=== PATIENT | male | born 1950 | race Two or more races ===

== ENCOUNTER → 2020-06-05 | Outpatient (CLI) | payer MEDICARE ==
[2020-06-05 09:15] LABS: Basophils # (auto) 0 10 ^3/uL (0-0.2); Basophils % (auto) 0.2 % (0.0-2.0); Eosinophils # (auto) 0.3 10 ^3/uL (0-0.8); Eosinophils % (auto) 5.7 % (0.0-7.0); Hematocrit 44.3 % (41.0-53.0); Hemoglobin 15.4 g/dL (13.5-17.5); Lymphocytes # (auto) 1.7 10 ^3/uL (0.4-5.4); Lymphocytes % (auto) 28.1 % (10.0-50.0); Mean Corpuscular Hemoglobin 28.7 pg (28.0-32.0); Mean Corpuscular Hgb Conc. 34.6 g/dL (32.0-36.0); Mean Corpuscular Volume 82.9 fL (80.0-100.0); Monocytes # (auto) 0.4 10 ^3/uL (0-1.3); Monocytes % (auto) 6.5 % (0.0-12.0); Neutrophils # (auto) 3.6 10 ^3/uL (1.6-8.6); Neutrophils % (auto) 59.5 % (37.0-80.0); Nucleated Red Blood Cells % 0.5 %; Platelet Count (auto) 223 10^3/uL (140-450); Red Blood Cells 5.35 10^6/uL (4.5-5.90); Red Cell Distribution Width 13.4 % (11.8-14.3)
[2020-06-05 09:25] LABS: Urine Bacteria NONE SEEN /hpf (None Seen); Urine Blood TRACE /uL (Negative); Urine Specific Gravity 1.022 (1.001-1.035); Urine WBC <1 /hpf (0 - 3)
[2020-06-05 10:34] LABS: Chloride 103 mmol/L (98-107); Sodium 137 mmol/L (136-145)
[2020-06-05 10:47] LABS: Alanine Aminotransferase 23 U/L (16-61); Albumin 3.7 g/dL (3.4-5.0); Alkaline Phosphatase 67 U/L (45-117); Anion Gap 5 (5-15); Aspartate Aminotransferase 14 U/L (15-37); BUN/Creatinine Ratio 16.5; Bilirubin, Total 0.4 mg/dL (0.2-1.0); Blood Urea Nitrogen 21 mg/dL (7-18); Calcium 9.3 mg/dL (8.5-10.1); Carbon Dioxide 29 mmol/L (21-32); Cholesterol 245 mg/dL (< 200); GFR African American 73 mL/min; GFR Non-African American 60 mL/min; Glucose 209 mg/dL (74-106); HDL Cholesterol 37 mg/dL (40-59); Total Protein 7.7 g/dL (6.4-8.2); Triglycerides 807 mg/dL (< 150)
== END | disposition home or self-care (01) ==
LOC: LAB 08:52
PROVIDERS: ATTEND Nurse Practitioner
DX: I10 Essential (primary) hypertension (principal); E11.9 Type 2 diabetes mellitus without complications; E78.5 Hyperlipidemia, unspecified
CPT/HCPCS: 36415; 80053; 80061; 81001; 82043; 83036; 85025

== ENCOUNTER 2020-08-13 12:55 | Inpatient (IN) | payer MEDICARE ==
[~2020-08-13] VITALS: Ht 177.8 cm; Wt 94.8 kg
[2020-08-13 15:06] LABS: INR 0.97 (0.9-1.15); Partial Thromboplastin Time 23.9 sec (23.0-31.2)
[2020-08-13] MEDS ORDERED: ONDANSETRON HCL 4 MG/2 ML VIAL IV PRN (16:00)
[2020-08-13] MEDS ORDERED: ALBUTEROL SULF 2.5 MG/0.5ML(0.5%) NEB SOLN NEB PRN (16:00)
[2020-08-13] MEDS ORDERED: hydrALAZINE HCL 20 MG/ML VL IV PRN (16:00)
[2020-08-13] MEDS ORDERED: SODIUM CHLORIDE 0.9% 1,000 ML IV SCH (16:00)
[2020-08-13] MEDS ORDERED: IPRATROPIUM BROM 0.5 MG/2.5ML INH SOL NEB PRN (16:00)
[2020-08-13] MEDS ORDERED: ACETAMINOPHEN 500 MG TAB PO PRN (16:00)
[2020-08-13] MEDS ORDERED: LORazepam 0.5 MG TAB PO PRN (16:00)
[2020-08-13] MEDS ORDERED: MORPHINE SULF INJ 2 MG/ML SYRINGE 1ML IV PRN (16:00)
[2020-08-13] MEDS ORDERED: DOCUSATE CALCIUM 240 MG CAP PO PRN (16:00)
[2020-08-13] MEDS ORDERED: SODIUM CHLORIDE 0.9% 1,000 ML IV ONE (16:15)
[2020-08-13 16:31] LABS: Basophils # (auto) 0 10 ^3/uL (0-0.2); Basophils % (auto) 0.1 % (0.0-2.0); Eosinophils # (auto) 0.2 10 ^3/uL (0-0.8); Eosinophils % (auto) 3.3 % (0.0-7.0); Hematocrit 39.3 % (41.0-53.0); Hemoglobin 13.7 g/dL (13.5-17.5); Lymphocytes # (auto) 1.6 10 ^3/uL (0.4-5.4); Lymphocytes % (auto) 23.4 % (10.0-50.0); Mean Corpuscular Hemoglobin 29.6 pg (28.0-32.0); Mean Corpuscular Hgb Conc. 34.9 g/dL (32.0-36.0); Mean Corpuscular Volume 84.7 fL (80.0-100.0); Monocytes # (auto) 0.4 10 ^3/uL (0-1.3); Monocytes % (auto) 6.4 % (0.0-12.0); Neutrophils # (auto) 4.6 10 ^3/uL (1.6-8.6); Neutrophils % (auto) 66.8 % (37.0-80.0); Nucleated Red Blood Cells % 0.1 %; Platelet Count (auto) 222 10^3/uL (140-450); Red Blood Cells 4.65 10^6/uL (4.5-5.90); Red Cell Distribution Width 13.1 % (11.8-14.3); White Blood Cell 6.9 10^3/uL (4.4-10.8)
[2020-08-13 16:44] LABS: Chloride 101 mmol/L (98-107); Potassium 4.2 mmol/L (3.5-5.1); Sodium 134 mmol/L (136-145)
[2020-08-13 16:50] LABS: Alanine Aminotransferase 23 U/L (16-61); Albumin 3.5 g/dL (3.4-5.0); Anion Gap 7 (5-15); Aspartate Aminotransferase 19 U/L (15-37); BUN/Creatinine Ratio 14.7; Blood Urea Nitrogen 20 mg/dL (7-18); Calcium 8.8 mg/dL (8.5-10.1); Carbon Dioxide 26 mmol/L (21-32); GFR African American 67 mL/min; GFR Non-African American 55 mL/min; Glucose 254 mg/dL (74-106)
[2020-08-13 16:54] LABS: Alkaline Phosphatase 69 U/L (45-117); Bilirubin, Total 0.4 mg/dL (0.2-1.0); Total Protein 7.1 g/dL (6.4-8.2)
[2020-08-13 17:04] VITALS: BP 168/82
[2020-08-13] MEDS ORDERED: DEXTROSE (50%) 50ML SYRG IV PRN (17:15)
[2020-08-13] MEDS: SODIUM CHLORIDE 0.9% 1,000 ML IV SCH (17:15)
[2020-08-13] MEDS: ACCU-CHEK COMFORT CURVE STRIP VI SCH (18:15)
[2020-08-13] MEDS: InsuLIN REG 1unit/0.01ml Soln (100units/ml) SC SCH (18:20)
[2020-08-13 18:56] LABS: Urine Bacteria NONE SEEN /hpf (None Seen); Urine Blood TRACE /uL (Negative); Urine Specific Gravity 1.025 (1.001-1.035); Urine WBC 1 /hpf (0 - 3)
[2020-08-13] MEDS ORDERED: LORazepam 2MG/ML-1ML VIAL IV PRN (19:45)
[2020-08-13 20:00] VITALS: BP 137/77
[2020-08-13 20:11] LABS: Cholesterol 223 mg/dL (< 200)
[2020-08-13 20:14] LABS: HDL Cholesterol 32 mg/dL (40-59); Triglycerides 713 mg/dL (< 150)
[2020-08-13 21:23] VITALS: BP 137/77
[2020-08-13] MEDS ORDERED: ATORVASTATIN 20 MG TAB PO SCH (22:00)
[2020-08-13] MEDS ORDERED: INSULIN LANTUS (GLARGINE) 1 /0.01ml (100units/ml) SC SCH (22:00)
[2020-08-13] MEDS ORDERED: LISI40TA11 PO (23:40)
[2020-08-13] MEDS ORDERED: METF-370 PO (23:40)
[2020-08-13] MEDS ORDERED: ASPI-543 PO (23:42)
[2020-08-13] MEDS ORDERED: ATOR20TA PO (23:42)
[2020-08-13] MEDS ORDERED: ALBUAER3 IN (23:42)
[2020-08-14] MEDS ORDERED: PNEUMOCOCCAL VACC POLYS 25 MCG/0.5 ML VIAL IM ONE
[2020-08-14] MEDS: SODIUM CHLORIDE 0.9% 1,000 ML IV SCH ×3 (00:06→13:28)
[2020-08-14] MEDS: InsuLIN REG 1unit/0.01ml Soln (100units/ml) SC SCH ×4 (00:09→18:30)
[2020-08-14] MEDS: ACCU-CHEK COMFORT CURVE STRIP VI SCH ×4 (00:10→18:29)
[2020-08-14 05:00] VITALS: BP 139/92
[2020-08-14 05:41] LABS: Basophils # (auto) 0 10 ^3/uL (0-0.2); Basophils % (auto) 0.1 % (0.0-2.0); Eosinophils # (auto) 0.2 10 ^3/uL (0-0.8); Eosinophils % (auto) 2.8 % (0.0-7.0); Hematocrit 37.5 % (41.0-53.0); Hemoglobin 13.2 g/dL (13.5-17.5); Lymphocytes # (auto) 1.6 10 ^3/uL (0.4-5.4); Lymphocytes % (auto) 23.4 % (10.0-50.0); Mean Corpuscular Hemoglobin 29.7 pg (28.0-32.0); Mean Corpuscular Hgb Conc. 35.2 g/dL (32.0-36.0); Mean Corpuscular Volume 84.3 fL (80.0-100.0); Monocytes # (auto) 0.4 10 ^3/uL (0-1.3); Monocytes % (auto) 6.2 % (0.0-12.0); Neutrophils # (auto) 4.6 10 ^3/uL (1.6-8.6); Neutrophils % (auto) 67.5 % (37.0-80.0); Nucleated Red Blood Cells % 0.1 %; Platelet Count (auto) 207 10^3/uL (140-450); Red Blood Cells 4.45 10^6/uL (4.5-5.90); Red Cell Distribution Width 13.2 % (11.8-14.3); White Blood Cell 6.8 10^3/uL (4.4-10.8)
[2020-08-14 05:53] LABS: Calcium 8.1 mg/dL (8.5-10.1); Potassium 3.8 mmol/L (3.5-5.1)
[2020-08-14 05:56] LABS: BUN/Creatinine Ratio 16.4; Bilirubin, Total 0.4 mg/dL (0.2-1.0); Total Protein 6.2 g/dL (6.4-8.2)
[2020-08-14 09:00] VITALS: BP 145/78
[2020-08-14] MEDS ORDERED: ENOXAPARIN SOD 40 MG/0.4 ML SYRINGE SC SCH (10:00)
[2020-08-14] MEDS ORDERED: PANTOPRAZOLE 40 MG TAB PO SCH (10:00)
[2020-08-14] MEDS ORDERED: ASPirin-EC 81 mg tab PO SCH (10:00)
[2020-08-14 13:00] VITALS: BP 131/75
[2020-08-14] MEDS ORDERED: INSLANTI SC (15:09)
[2020-08-14] MEDS ORDERED: ATO40T PO (15:09)
[2020-08-14 17:00] VITALS: BP 119/72
[2020-08-14 17:20] VITALS: BP 119/72
[2020-08-15] MEDS ORDERED: ASPirin-EC 81 mg tab PO SCH (10:00)
== END 2020-08-14 21:00 | disposition home or self-care (01) | DRG 69 ==
LOC: ER 12:55 → TELE 15:56 → TELE-WESTW 19:51
PROVIDERS: ADMIT Family Medicine; ATTEND Internal Medicine
DX: G45.9 Transient cerebral ischemic attack, unspecified (principal); N17.0 Acute kidney failure with tubular necrosis; E11.65 Type 2 diabetes mellitus with hyperglycemia; E66.9 Obesity, unspecified; J45.909 Unspecified asthma, uncomplicated; Z20.822 Contact with and (suspected) exposure to COVID-19; E78.5 Hyperlipidemia, unspecified; J44.9 Chronic obstructive pulmonary disease, unspecified; Z79.82 Long term (current) use of aspirin; Z79.899 Other long term (current) drug therapy; Z80.9 Family history of malignant neoplasm, unspecified; Z82.3 Family history of stroke; Z82.49 Family history of ischemic heart disease and other diseases of the circulatory system; Z83.3 Family history of diabetes mellitus; Z68.30 Body mass index [BMI] 30.0-30.9, adult; N18.9 Chronic kidney disease, unspecified; I12.9 Hypertensive chronic kidney disease with stage 1 through stage 4 chronic kidney disease, or unspecified chronic kidney disease; E11.22 Type 2 diabetes mellitus with diabetic chronic kidney disease
CPT/HCPCS: 36415; 70450; 70551; 71046; 80053; 80061; 81001; 82962; 83036; 84443; 84484; 85025; 85610; 85730; 87426; 93005; 93306; 93886; 96360; 96361; G0378; J1815

== ENCOUNTER 2021-08-26 13:05 | Inpatient (IN) | payer MEDICARE ==
[~2021-08-26] VITALS: Ht 177.8 cm; Wt 97.5 kg
[~2021-08-26 13:05] MED LIST: ALBUAER3 IN; ASPI-543 PO; ATO40T PO; INSLANTI SC; LISI40TA11 PO; METF-370 PO
[2021-08-26 19:51] LABS: Basophils # (auto) 0 10 ^3/uL (0-0.2); Basophils % (auto) 0.2 % (0.0-2.0); Eosinophils # (auto) 0.2 10 ^3/uL (0-0.8); Eosinophils % (auto) 2.6 % (0.0-7.0); Hematocrit 43.6 % (41.0-53.0); Hemoglobin 14.7 g/dL (13.5-17.5); Lymphocytes # (auto) 1.6 10 ^3/uL (0.4-5.4); Lymphocytes % (auto) 26.8 % (10.0-50.0); Mean Corpuscular Hemoglobin 27.8 pg (28.0-32.0); Mean Corpuscular Hgb Conc. 33.6 g/dL (32.0-36.0); Mean Corpuscular Volume 82.7 fL (80.0-100.0); Monocytes # (auto) 0.4 10 ^3/uL (0-1.3); Monocytes % (auto) 6.7 % (0.0-12.0); Neutrophils # (auto) 3.9 10 ^3/uL (1.6-8.6); Neutrophils % (auto) 63.7 % (37.0-80.0); Nucleated Red Blood Cells % 0.4 %; Red Blood Cells 5.27 10^6/uL (4.5-5.90); Red Cell Distribution Width 12.9 % (11.8-14.3); White Blood Cell 6.1 10^3/uL (4.4-10.8)
[2021-08-26 19:57] LABS: Albumin 4.5 g/dL (3.4-5.0); BUN/Creatinine Ratio 11.5; Calcium 9.1 mg/dL (8.5-10.1); Potassium 4.8 mmol/L (3.5-5.1)
[2021-08-26 20:00] LABS: Bilirubin, Total 0.3 mg/dL (0.2-1.0); Total Protein 7.8 g/dL (6.4-8.2)
[2021-08-26] MEDS ORDERED: hydrALAZINE HCL 20 MG/ML VL IV PRN (22:15)
[2021-08-26] MEDS ORDERED: ONDANSETRON HCL 4 MG/2 ML VIAL IV PRN (22:15)
[2021-08-26] MEDS ORDERED: HYDROcodone-ACET 5/325MG TAB PO PRN (22:15)
[2021-08-26] MEDS ORDERED: DOCUSATE SOD 100 MG CAP PO PRN (22:15)
[2021-08-26] MEDS ORDERED: ACETAMINOPHEN 325 MG TAB PO PRN (22:15)
[2021-08-26] MEDS ORDERED: DEXTROSE (50%) 50ML SYRG IV PRN (22:15)
[2021-08-26] MEDS ORDERED: SODIUM CHLORIDE 0.9% 1,000 ML IV SCH (22:15)
[2021-08-26 22:38] LABS: Urine WBC None Seen /hpf (0 - 3)
[2021-08-26 23:02] LABS: Urine Bacteria NONE SEEN /hpf (None Seen); Urine Blood Negative /uL (Negative); Urine Hyaline Cast FEW /lpf (0 - 2); Urine Specific Gravity 1.026 (1.001-1.035)
[2021-08-26] MEDS ORDERED: MORPHINE SULFATE INJ 2 MG/ml SYRG IV PRN (23:30)
[2021-08-26] MEDS ORDERED: NITROGLYCERIN 0.4 MG SL TAB SL PRN (23:30)
[2021-08-27 00:30] VITALS: BP 170/96
[2021-08-27 02:34] VITALS: BP 148/91
[2021-08-27 05:00] VITALS: BP 142/87
[2021-08-27 05:44] LABS: Albumin 3.8 g/dL (3.4-5.0); BUN/Creatinine Ratio 12.1; Calcium 8.9 mg/dL (8.5-10.1); Potassium 4.7 mmol/L (3.5-5.1)
[2021-08-27 05:47] LABS: Bilirubin, Total 0.3 mg/dL (0.2-1.0); Total Protein 7.1 g/dL (6.4-8.2)
[2021-08-27 05:48] LABS: Basophils # (auto) 0 10 ^3/uL (0-0.2); Basophils % (auto) 0.1 % (0.0-2.0); Eosinophils # (auto) 0.3 10 ^3/uL (0-0.8); Eosinophils % (auto) 4.6 % (0.0-7.0); Hematocrit 41.1 % (41.0-53.0); Hemoglobin 13.9 g/dL (13.5-17.5); Lymphocytes # (auto) 1.9 10 ^3/uL (0.4-5.4); Lymphocytes % (auto) 32.2 % (10.0-50.0); Mean Corpuscular Hemoglobin 28.1 pg (28.0-32.0); Mean Corpuscular Hgb Conc. 33.9 g/dL (32.0-36.0); Mean Corpuscular Volume 82.9 fL (80.0-100.0); Monocytes # (auto) 0.4 10 ^3/uL (0-1.3); Monocytes % (auto) 6.9 % (0.0-12.0); Neutrophils # (auto) 3.4 10 ^3/uL (1.6-8.6); Neutrophils % (auto) 56.2 % (37.0-80.0); Nucleated Red Blood Cells % 0.1 %; Red Blood Cells 4.96 10^6/uL (4.5-5.90); Red Cell Distribution Width 12.9 % (11.8-14.3)
[2021-08-27] MEDS: ACCU-CHEK COMFORT CURVE STRIP VI SCH ×4 (06:51→21:42)
[2021-08-27] MEDS: InsuLIN REG 1unit/0.01ml Soln (100units/ml) SC SCH ×4 (06:54→21:42)
[2021-08-27] MEDS: MORPHINE SULFATE INJ 2 MG/ml SYRG IV PRN (07:06)
[2021-08-27 08:57] VITALS: BP 163/100
[2021-08-27] MEDS: ASPirin 81 mg TAB PO SCH (08:58)
[2021-08-27] MEDS: amLODIPine BESYLATE 5 MG TAB PO SCH (08:58)
[2021-08-27 11:23] LABS: Cholesterol 101 mg/dL (< 200); HDL Cholesterol 32 mg/dL (40-59); LDL Cholesterol 49 mg/dL (< 100); Triglycerides 260 mg/dL (< 150)
[2021-08-27] MEDS: HEPARIN SODIUM (PORCINE) 5000 UNITS/ML 1ML VIAL SC SCH ×2 (11:30→21:39)
[2021-08-27 13:00] VITALS: BP_SYST 141; BP_SYST 154; BP_DIAS 78; BP_DIAS 91
[2021-08-27] MEDS ORDERED: ERGOCALCIFEROL 50,000 UNIT(1.25MG) CAP PO SCH (19:00)
[2021-08-27] MEDS ORDERED: LISINOPRIL 10 MG TAB PO ONE (19:00)
[2021-08-27] MEDS: METOPROLOL TARTRATE 25 MG TAB PO SCH (21:36)
[2021-08-27] MEDS: ATORVASTATIN 20 MG TAB PO SCH (21:36)
[2021-08-27 22:00] VITALS: BP 126/76
[2021-08-27] MEDS ORDERED: ATORVASTATIN 20 MG TAB PO SCH (22:00)
[2021-08-28 04:44] VITALS: BP 147/80
[2021-08-28] MEDS: ACCU-CHEK COMFORT CURVE STRIP VI SCH ×4 (06:30→22:24)
[2021-08-28] MEDS: InsuLIN REG 1unit/0.01ml Soln (100units/ml) SC SCH ×4 (06:34→22:24)
[2021-08-28 07:30] LABS: BUN/Creatinine Ratio 14.5; Calcium 9.4 mg/dL (8.5-10.1); Potassium 4.4 mmol/L (3.5-5.1)
[2021-08-28 07:37] LABS: INR 1.03 (0.9-1.15); Partial Thromboplastin Time 26.5 sec (23.6-33.0)
[2021-08-28] MEDS: MORPHINE SULFATE INJ 2 MG/ml SYRG IV PRN (08:26)
[2021-08-28 09:00] VITALS: BP 144/90
[2021-08-28] MEDS ORDERED: LISINOPRIL 10 MG TAB PO SCH (10:00)
[2021-08-28] MEDS: ASPirin 81 mg TAB PO SCH (10:13)
[2021-08-28] MEDS: METOPROLOL TARTRATE 25 MG TAB PO SCH ×2 (10:14→22:17)
[2021-08-28] MEDS: amLODIPine BESYLATE 5 MG TAB PO SCH (10:15)
[2021-08-28] MEDS: HEPARIN SODIUM (PORCINE) 5000 UNITS/ML 1ML VIAL SC SCH ×2 (10:18→22:23)
[2021-08-28 12:33] VITALS: BP 149/85
[2021-08-28 17:03] VITALS: BP 160/84
[2021-08-28 18:41] VITALS: BP 133/82
[2021-08-28 22:00] VITALS: BP 133/86
[2021-08-28] MEDS: ATORVASTATIN 20 MG TAB PO SCH (22:17)
[2021-08-29 00:05] LABS: Protein, Urine 23.1 mg/dL (0.0-11.9)
[2021-08-29 05:00] VITALS: BP 152/89
[2021-08-29] MEDS: ACCU-CHEK COMFORT CURVE STRIP VI SCH ×4 (05:50→21:57)
[2021-08-29] MEDS: InsuLIN REG 1unit/0.01ml Soln (100units/ml) SC SCH ×4 (06:39→21:59)
[2021-08-29 07:20] LABS: Calcium 9.2 mg/dL (8.5-10.1); Potassium 4.3 mmol/L (3.5-5.1)
[2021-08-29 07:23] LABS: BUN/Creatinine Ratio 17.9
[2021-08-29 09:00] VITALS: BP 132/77
[2021-08-29] MEDS: METOPROLOL TARTRATE 25 MG TAB PO SCH ×4 (09:45→21:57)
[2021-08-29] MEDS: ASPirin 81 mg TAB PO SCH ×2 (09:45→10:00)
[2021-08-29] MEDS: amLODIPine BESYLATE 5 MG TAB PO SCH ×3 (09:46→12:10)
[2021-08-29] MEDS: LISINOPRIL 10 MG TAB PO SCH ×3 (09:48→12:10)
[2021-08-29] MEDS: HEPARIN SODIUM (PORCINE) 5000 UNITS/ML 1ML VIAL SC SCH ×4 (09:49→21:58)
[2021-08-29 13:00] VITALS: BP 117/75
[2021-08-29 17:00] VITALS: BP 114/70
[2021-08-29] MEDS: ATORVASTATIN 20 MG TAB PO SCH (21:57)
[2021-08-29 22:00] VITALS: BP 127/75
[2021-08-30] VITALS (7 sets, daily range): BP systolic 108–148; BP diastolic 65–94
[2021-08-30] MEDS: ACCU-CHEK COMFORT CURVE STRIP VI SCH ×4 (06:06→21:40)
[2021-08-30] MEDS: InsuLIN REG 1unit/0.01ml Soln (100units/ml) SC SCH ×4 (06:16→21:42)
[2021-08-30] MEDS: METOPROLOL TARTRATE 25 MG TAB PO SCH ×2 (10:00→21:36)
[2021-08-30] MEDS: LISINOPRIL 10 MG TAB PO SCH (10:00)
[2021-08-30] MEDS: ASPirin 81 mg TAB PO SCH (10:00)
[2021-08-30] MEDS: amLODIPine BESYLATE 5 MG TAB PO SCH (10:00)
[2021-08-30] MEDS: HEPARIN SODIUM (PORCINE) 5000 UNITS/ML 1ML VIAL SC SCH ×2 (10:12→21:39)
[2021-08-30] MEDS ORDERED: ADENOSINE 87 MG in GIVE UN-DILUTED 0 ML IV STA (11:39)
[2021-08-30] MEDS: ATORVASTATIN 20 MG TAB PO SCH (21:35)
[2021-08-31 05:00] VITALS: BP 139/81
[2021-08-31] MEDS: ACCU-CHEK COMFORT CURVE STRIP VI SCH ×3 (05:55→17:42)
[2021-08-31] MEDS: InsuLIN REG 1unit/0.01ml Soln (100units/ml) SC SCH ×3 (05:56→17:42)
[2021-08-31 08:00] VITALS: BP 140/76
[2021-08-31 09:00] VITALS: BP 140/76
[2021-08-31] MEDS: METOPROLOL TARTRATE 25 MG TAB PO SCH (09:46)
[2021-08-31] MEDS: ASPirin 81 mg TAB PO SCH (09:46)
[2021-08-31] MEDS: amLODIPine BESYLATE 5 MG TAB PO SCH (09:47)
[2021-08-31] MEDS: LISINOPRIL 10 MG TAB PO SCH (09:47)
[2021-08-31] MEDS: HEPARIN SODIUM (PORCINE) 5000 UNITS/ML 1ML VIAL SC SCH (09:47)
[2021-08-31 13:15] VITALS: BP 130/77
[2021-08-31] MEDS ORDERED: INSLANTI SC (17:10)
[2021-08-31] MEDS ORDERED: EMPA1TAB PO (17:10)
[2021-08-31] MEDS ORDERED: ASPI-543 PO (17:10)
[2021-08-31] MEDS ORDERED: ERGO1CAP23 PO (17:10)
[2021-08-31] MEDS ORDERED: METF-370 PO (17:10)
[2021-08-31] MEDS ORDERED: LISI40TA11 PO (17:10)
[2021-08-31] MEDS ORDERED: MET25T PO (17:10)
[2021-08-31] MEDS ORDERED: AML5T PO (17:10)
[2021-08-31] MEDS ORDERED: ATO40T PO (17:10)
[2021-08-31 18:31] VITALS: BP 153/84
== END 2021-08-31 18:59 | disposition home or self-care (01) | DRG 313 ==
LOC: ER 13:05 → TELE 23:17 → TELE-WESTW 23:55
PROVIDERS: ADMIT Nurse Practitioner Family; ATTEND Internal Medicine
DX: R07.89 Other chest pain (principal); N17.0 Acute kidney failure with tubular necrosis; R91.1 Solitary pulmonary nodule; E11.65 Type 2 diabetes mellitus with hyperglycemia; N18.30 Chronic kidney disease, stage 3 unspecified; E11.22 Type 2 diabetes mellitus with diabetic chronic kidney disease; E78.1 Pure hyperglyceridemia; E78.5 Hyperlipidemia, unspecified; M19.90 Unspecified osteoarthritis, unspecified site; E11.42 Type 2 diabetes mellitus with diabetic polyneuropathy; I12.9 Hypertensive chronic kidney disease with stage 1 through stage 4 chronic kidney disease, or unspecified chronic kidney disease; M79.622 Pain in left upper arm; Z20.822 Contact with and (suspected) exposure to COVID-19; E11.40 Type 2 diabetes mellitus with diabetic neuropathy, unspecified; Z87.891 Personal history of nicotine dependence
CPT/HCPCS: 36415; 71045; 71250; 73030; 78452; 80048; 80053; 80061; 81001; 82043; 82306; 82570; 82962; 83036; 84156; 84300; 84484; 85025; 85379; 85610; 85730; 93005; 93017; 93306; 93971; 96360; G0378; J0153; J1815